=== PATIENT | female | born 1980 | race Two or more races ===

== ENCOUNTER 2020-05-21 13:00 | Observation (INO) | payer MEDICAID ==
[~2020-05-21] VITALS: Ht 160 cm; Wt 55.3 kg
[2020-05-21 14:00] LABS: CLARITY URINE CLEAR (CLEAR); COLOR URINE YELLOW (YELLOW); KETONES URINE NEGATIVE (NEGATIVE); LEUKOCYTE ESTERASE URINE TRACE (NEGATIVE); NITRITE URINE NEGATIVE (NEGATIVE); OCCULT BLOOD URINE NEGATIVE (NEGATIVE); PH URINE 7.5 (4.5-8.0); PROTEIN URINE NEGATIVE (NEGATIVE); SPECIFIC GRAVITY URINE 1.004 (1.005-1.030); UROBILINOGEN URINE 0.2 E.U./dL (0.2-1.0)
[2020-05-21] MEDS: LACTATED RINGERS 1,000 ML IV SCH ×2 (14:42→16:32)
== END 2020-05-21 17:45 | disposition home or self-care (01) ==
LOC: 8 EST LDRP 13:00
PROVIDERS: ADMIT Obstetrics & Gynecology; ATTEND Obstetrics & Gynecology
DX: O26.893 Other specified pregnancy related conditions, third trimester (principal); R10.30 Lower abdominal pain, unspecified
CPT/HCPCS: 59025; 81003; 82731; 96360; 96361; G0378; J7120; 99281